=== PATIENT | male | born 1970 | race Caucasian/White ===

== ENCOUNTER 2025-01-18 01:45 | Emergency (ER) | payer BC, SELFPAY ==
[2025-01-18] VITALS (41 sets, daily range): BP systolic 153–173; BP diastolic 71–124; PULSE 62–107; TEMP 36.9; O2SAT 94–99; BMI 46.0
--- NOTE | 2025-01-18 01:52 | ECG_ITS ---
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 Measurements Intervals [place] Rate: 106 P: 42 NC: 128 QRS: 34 QRSD: 82 T: 50 QT: 330 QTc: 392 Interpretive Statements 1120 Sinus tachycardia 4068 Nonspecific Twave abnormality 6220 Possible left atrial enlargement abnormal ECG No previous ECG available for comparison Electronically Signed On 01-18-2025 6:30:18 EDT by FRANCY MANJARREZ M.D.
--- OUTSIDE RECORDS SUMMARY | 2025-01-18 01:58 | XMS_ITS | Clinical Summary ---
Author Organization [facility] Address [address] [place] [address] Care Team Providers Care Roller Mill Tender Name Role Phone Amber Hernandez MD, IBCLC Primary Care Provid er Allergies Active AllergyReactionsCriticalityNoted DateCommentsAmlodipineSwellingMedium 10/02/2021moxicillinHives,Ofdqumw5104/27/2017BisoprololSwelling,Hxijubm1506/15/2021 PzrubofyxastaudhysiLzwlfvqa14/30/8375PflorldibyDvvzlkaq12/07/2018Losartan Tyrzsqvy20/07/3288LgxtqllldqxBgohyiyy65/30/2025 Medications MedicationSigDispense QuantityRefillsLast FilledStart DateEnd DateStatus doxazosin (Cardura) 2 MG tablet Take 2 mg by mouth at udsjbxv16/30/2025Active meloxicam (Mobic) 15 MG tablet Indications: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,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 Take 1 tablet (15 mg) by mouth Daily 90 tablet 501/ctive Active Problems ProblemNoted DateDiagnosed BvtsRytmjecanivjyk21/23/2025Screening for colon opzwbl9610/23/2024 Encounters DateTypeDepartmentCare LzgrCdzmutcudxi52/08/2025Telephone [facility] [address] [place] [address] Amber Hernandez MD, IBCLC 12/26/2024[facility]phone [facility] [address] [place], [place] [address]Shilpa [facility] [place] [address] Leonora Vega, WOO Med Iuhauc1012/11/2024 9:00 AM EDTOffice Visit [facility] [address] [place] [address] [address] [place] [phone] Will Sumner, DO Screening for colon cancer (Primary Dx); Pqsxzvkzfxppkk81/23/9485Wyyrgd44/18/2025Orders Only [facility] [address] [place] [address] [address] [place] [phone] Will Sumner, DO 11/12/20246130Sglmag61/05/2025 9:00 AM EDTOffice Visit [facility] [address] [place] [address] [address] [place] [phone] Will Sumner, DO Screening for colon tbswjm2710/23/20248115Yrhdkb87/04/2025Travelfrom Last 3 Months Family History Medical HistoryRelationNameCommentsDiabetesMotherHeart diseaseMotherHypertension MotherRelationNameStatusCommentsFatherAliveMotherDeceased Social History Tobacco UseTypesPacks/DayYears UsedDateSmoking Tobacco: NeverPassive Smoke Exposure: NeverSmokeless Tobacco: Never Tobacco Cessation:Counseling Given: Yes Alcohol UseStandard Drinks/WeekCommentsYes0 (1 standard drink = 0.6 oz pure alcohol)caffeine intake: 2-3 cups per day teaSex and Gender InformationValueDate RecordedSex Assigned at BirthNot on fileLegal DbvHcss6806/02/2022 11:19 PM EDT Gender IdentityNot on fileSexual OrientationNot on file Last Filed Vital Signs Vital SignReadingTime TakenCommentsBlood Tlgeptvz822/7808 9:08 AM EDT Axkbn3469 7:53 AM OEQDyvsmmvzjbc89.8 ??C (96.4 ??F)08/16/2024 7:53 AM EDTRespiratory Ogck921605/08/2024 4:43 PM ESTOxygen Kvazpbqhln72%08/16/2024 7:53 AM EDTInhaled Oxygen Concentration--Kprgln602 kg (326 lb)10/23/2024 9:08 AM EDT Cddlsv638.8 cm (5' 10 )10/23/2024 9:08 AM EDTBody Mass Index46.78010/23/2024 9:08 AM EDT Plan of Treatment DateTypeDepartmentCare Team (Latest Contact Info)Bzpebvcmoyy48/01/2025 8:00 AM ESTOffice Visit [facility] [address] [place] [phone] Amber Hernandez MD, IBCLC [address] [place] [address] Health MaintenanceDue DateLast DoneCommentsCT Vmllweypkzrm1972FIT-DNA 1970FIT1970FOBT1970 4515Ybnfaruoessaq1970Influenza Vaccine (#1)9456Gijpfiutejy86/11/348825/5Colorectal Cancer Screening 11/29/2034 Procedures Procedure NamePriorityDate/TimeAssociated DiagnosisCommentsHM COLONOSCOPYRoutine 11/29/2024 1:55 PM EDTfrom Last 3 Months Results * Hm Colonoscopy (11/29/2024 1:55 PM EDT)Anatomical RegionLateralityModality Other Narrative Authorizing ProviderResult TypeResult StatusPaul Serg Sumner DOHEALTH MAINTENANCE Final Result from Last 3 Months Insurance Care Teams Team MemberRelationshipSpecialtyStart DateEnd Date Amber Hernandez MD, IBCLC [address] [place] [phone] PCP - Generalmily Medicine08/16/24
--- OUTSIDE RECORDS SUMMARY | 2025-01-18 01:59 | XMS_ITS | Clinical Summary ---
Author Organization [facility] tem Address [id number] [address] [place] [address] Care Team Providers Care File Conversion Operator Name Role Phone Amber Hernandez MD Primary Care Provider [phone] Allergies Active AllergyReactionsCriticalityNoted DateCommentsAmlodipineSwellingMedium 10/02/20214909AmbkoosgxcxGrocp96/07/2589SkffhczsefDakdpfhi82/ HepthytztcngoaudmafPwusjyjo04/30/0927XwqpzhmiljJizqvkgc31/07/2018Losartan Vgoyqeyx45/07/2099OrzxlzbmiqjGrnlyoay30/30/2025 Medications MedicationSigDispense QuantityRefillsLast FilledStart DateEnd DateStatus doxazosin (CARDURA) 2 mg tablet Indications:Essential hypertension, benignTake 1 tablet (2 mg total) by mouth nightly. 30 tablet 1105Active Active Problems ProblemNoted DateDiagnosed DateEssential hypertension, vtghik7304/28/2017 Immunizations No known immunizations Family History Medical HistoryRelationNameCommentsNo Known ProblemsFatherCoronary artery diseaseMotherDiabetesMotherHypertensionMotherLung cancerPaternal Grandfather RelationNameStatusCommentsFatherAliveMotherAlivePaternal Grandfather Social History Tobacco UseTypesPacks/DayYears UsedDateSmoking Tobacco: NeverSmokeless Tobacco: Never Tobacco Cessation:Counseling Given: Not Answered Alcohol UseStandard Drinks/WeekCommentsYes0 (1 standard drink = 0.6 oz pure alcohol)socialAUDIT-CAnswerDate RecordedFrequency of Alcohol Consumption2-4 times a month10/02/2018Average Number of Drinks5 or 607Frequency of Binge LfaslfxfFvvanrw77/15/2019PHQ-2AnswerDate RecordedTotal Hkrjt534 ChildcareAnswerDate QpgnvcrtGikvqbedgRldocwk13/31/2019EmploymentAnswerDate XggfaspbLkpiryxpvaEusqenh17/31/2019Hunger ScreeningAnswerDate RecordedWithin the past 12 months we worried whether our food would run out before we got money to buy more.Never True07/18/2024Within the past 12 months the food we bought just didn't last and we didn't have money to get more.Never True07/18/2024Purpose - LifeAnswerDate RecordedPurpose and direction in fcvnGripkil71/11/2021ex and Gender InformationValueDate RecordedSex Assigned at BirthNot on fileLegal Sex Male10/24/2014 11:38 AM EDTGender IdentityNot on fileSexual OrientationNot on file Last Filed Vital Signs Vital SignReadingTime TakenCommentsBlood Xqvxqpjn922/98007/18/2024 11:41 AM EDT Iuwhz109507/18/2024 11:41 AM RKTVdphywqgdte28.6 ??C (97.9 ??F)02/01/2024 3:26 PM ESTRespiratory Iljn476807/18/2024 11:41 AM EDTOxygen Jsffwzfubu59%07/18/2024 11:41 AM EDTInhaled Oxygen Concentration--Qfbsaw330.4 kg (314 lb)07/18/2024 11:41 AM GIMBbmxnq624.8 cm (5' 10 )02/01/2024 3:26 PM ESTBody Mass Index45.0502/01/2024 3:26 PM EST Plan of Treatment Health MaintenanceDue DateLast DoneCommentsAdult BMI Follow Up Plan1990 DTaP,Tdap and Td Vaccines (1 - Tdap)1991Zoster (Shingles) Vaccine (1 of 2) 2022Influenza Kxqlkik8311/19/2024dult BMI Cwdnemvyn545 Depression Bjbfrkpji05Tobacco Tejphzwce40 Medical Devices Not on file Insurance MemberSubscriberPlan / Payer (Effective 2022-Present)Name:Seymour Thomas Relation to Subscriber:SelfName:Seymour Thomas Payer ID:Not on file Group ID:Not on file Type:Not on file Address: [address] [place], [place] Care Teams Team MemberRelationshipSpecialtyStart DateEnd Amber Gregorio MD [address] [place] [address] PCP - GeneralObstetrics & Gynecology08/16/24
--- NOTE | 2025-01-18 02:15 | PC.NURSE ---
feel heart fluttering or beating out of chest
--- NOTE | 2025-01-18 02:21 | ED.ARRPALP1 ---
HPI - Arrhythmia/Palpitations General Chief Complaint: Arrhythmia/Palpitations Stated Complaint: Fast Heart Time Seen by Provider: 01/18/25 02:11 Source: patient Mode of arrival: walk-in Limitations: no limitations History of Present Illness HPI narrative: clammy with flutter in his chest and then need to urinate several times. No chest pain, nausea or dyspnea. symptoms started about an hour ago and have resolved. No abdominal pain , fever or chills Related Data Home Medications ?Medication ?Instructions ?Recorded ?Confirmed doxazosin 2 mg tablet 2 mg PO DAILY 01/18/25 01/18/25 meloxicam 15 mg tablet 15 mg PO DAILY 01/18/25 01/18/25 omega3 1,050 mg-dha 300mg-epa cap PO 01/18/25 675mg-dpa 43fd-yvnh-J6-K2 50 mcg capsule (Siler-3 2100 Vit K2-D3) vitamin B complex and C 5 ml PO DAILY 01/18/25 01/18/25 no.10-folic acid 900 mcg/5 mL oral liquid Allergies Allergy/AdvReac Type Severity Reaction Status Date / Time amlodipine Allergy Severe Anaphylaxis Verified 01/18/25 02:30 bisoprolol Allergy Severe Anaphylaxis Verified 01/18/25 02:30 hydrochlorothiazide Allergy Severe Anaphylaxis Verified 01/18/25 02:30 lisinopril Allergy Severe Anaphylaxis Verified 01/18/25 02:30 losartan Allergy Severe Anaphylaxis Verified 01/18/25 02:30 triamterene Allergy Severe Anaphylaxis Verified 01/18/25 02:30 amoxicillin Allergy Intermediate Hives Verified 01/18/25 02:30 Review of Systems ROS Status of ROS 10 or more systems reviewed and unremarkable except as noted in history and below [facility] Medical History (Updated 01/18/25 @ 05:53 by Óscar Bravo MD) Hypertension ?I10 - Essential (primary) hypertension (ICD-10) Surgical History (Updated 01/18/25 @ 02:10 by Dameon Haddad) H/O lateral meniscus repair of right knee ?Z98.890 - Other specified postprocedural states (ICD-10) H/O lateral meniscus repair of left knee ?Z98.890 - Other specified postprocedural states (ICD-10) H/O colonoscopy ?Z98.890 - Other specified postprocedural states (ICD-10) Social History Little interest or pleasure in doing things: not at all Feeling down, depressed, or hopeless: not at all Exam Constitutional Vital Signs, click to edit/add: Last Vital Signs Temp 98.4 F 01/18/25 01:50 Pulse 107 H 01/18/25 01:50 Resp 20 01/18/25 01:50 BP 160/110 H 01/18/25 03:11 Pulse Ox 96 01/18/25 01:50 O2 Del Method Room Air 01/18/25 01:50 Common normals: no apparent distress, average body habitus, oriented x3, no limitations, healthy appearing, alert and well nourished HENVA Common normals: normocephalic and head/scalp atraumatic Eye Common normals: PERRL and EOMs intact bilaterally Respiratory Common normals: normal respiratory effort, no retractions, no use of accessory muscles and clear to auscultation bilaterally Cardio Common normals: regular rate, regular rhythm, S1 normal heart sound and S2 normal heart sound GI Common normals: Normal to inspection, nondistended, normoactive bowel sounds present, soft to palpation and non-tender Extremity Common normals: normal to inspection and full ROM Neuro Common normals: oriented x3, CN's II-XII intact bilaterally, moves all extremities and no focal motor deficits Psych Appearance: grossly normal Course Vital Signs Vital signs: Vital Signs Temperature 98.4 F 01/18/25 01:50 Pulse Rate 107 H 01/18/25 01:50 Respiratory Rate 20 01/18/25 01:50 Blood Pressure 170/120 H 01/18/25 01:50 Pulse Oximetry 96 01/18/25 01:50 Oxygen Delivery Method Room Air 01/18/25 01:50 Temperature 98.4 F 01/18/25 01:50 Pulse Rate 107 H 01/18/25 01:50 Respiratory Rate 20 01/18/25 01:50 Blood Pressure 160/110 H 01/18/25 03:11 Pulse Oximetry 96 01/18/25 01:50 Oxygen Delivery Method Room Air 01/18/25 01:50 MDM - Arrhythmia/Palpitations MDM Narrative Medical decision making narrative: patient has past history of HTN. Presents from home with episode of fluttering in his chest and diaphoresis. by the time he arrived here he was asymptomatic. No past history of CAD. EKG with sinus tach. cxray without acute findings. His troponin increased from 27 to 85. Discussed with hospitalist at [facility] and patient accepted for admission. Patient is currently asymptomatic Lab Data Labs: Lab Results 01/18/25 01/18/25 01/18/25 Range/Units 02:00 03:23 04:40 WBC 8.6 (4.0-11.0) 10^3/uL RBC 5.31 (4.70-6.10) 10^6/uL Hgb 16.4 (14.0-18.0) g/dL Hct 46.7 (42.0-54.0) % MCV 87.9 (80.0-94.0) fL MCH 30.9 (25.9-34.0) pg MCHC 35.1 (29.9-35.2) g/dL RDW 12.5 (11.0-15.0) % Plt Count 205 (150-450) 10^3/uL MPV 11.0 (9.5-13.5) fL Neut % (Auto) 65.7 (43.0-75.0) % Lymph % (Auto) 22.5 (20.5-60.0) % [place] % (Auto) 7.3 (1.7-12.0) % Eos % (Auto) 2.3 (0.9-7.0) % Baso % (Auto) 0.7 (0.2-2.0) % Neut # (Auto) 5.6 (1.4-6.5) 10^3/uL Lymph # (Auto) 1.9 (1.2-3.8) 10^3/uL [place] # (Auto) 0.6 (0.3-0.8) 10^3/uL Eos # (Auto) 0.2 (0.0-0.7) 10^3/uL Baso # (Auto) 0.1 (0.0-0.1) 10^3/uL Abs Immat Gran (auto) 0.13 H (0.00-0.03) 10^3/uL Imm/Tot Granulo (auto) 1.5 H (0.0-0.5) % D-Dimer 0.31 (<=0.59) mg/L FEU Sodium 141 (136-145) mmol/L Potassium 3.7 (3.5-5.1) mmol/L Chloride 103 (98-107) mmol/L Carbon Dioxide 28.3 (21.0-32.0) mmol/L Anion Gap 13.4 BUN 23.0 H (7.0-18.0) mg/dL Creatinine 1.07 (0.70-1.30) mg/dL Est GFR ( Amer) >60 (>=60 mL/min/1.73m^2) Est GFR (Non-Af Amer) >60 (>=60 mL/min/1.73m^2) BUN/Creatinine Ratio 21.5 Glucose 142 H (74-106) mg/dL Calcium 10.3 H (8.5-10.1) mg/dL Troponin I High Sens 27.6 85.0 H* (4.0-76.1) pg/mL Urine Color Lt. yellow (YELLOW) Urine Clarity Clear (CLEAR) Urine pH 6.0 (5.0-9.0) Ur Specific [place] 1.015 (1.005-1.025) Urine Protein Negative (NEG/TRACE) mg/dL Urine Glucose (UA) Negative (NEGATIVE) mg/dL Urine Ketones Negative (NEGATIVE) mg/dL Urine Occult Blood Trace-i (NEGATIVE) Urine Nitrite Negative (NEGATIVE) Urine Bilirubin Negative (NEGATIVE) Urine Urobilinogen 0.2 (0.2-1.0) EU/dL Ur Leukocyte Esterase Negative (NEGATIVE) Urine RBC None seen (0-2) #/HPF Urine WBC 0-2 A (NONE SEEN) #/HPF Ur Squamous Epith Cells None seen (NONE/RARE) #/LPF Urine Crystals None seen (None Seen) #/HPF Urine Bacteria Trace A (NONE SEEN) #/HPF Urine Casts None seen (NONE SEEN) #/LPF Urine Mucus None seen (NONE SEEN) Ur Culture Indicated? No Discharge Plan Discharge Chief Complaint: Arrhythmia/Palpitations Clinical Impression: Chest pain, Elevated troponin Patient Disposition: [facility]
--- NOTE | 2025-01-18 02:23 | XR_ITS ---
The [place] [id number] Patient Name: MARY ALVARADO MRN: [id number] date: 1970 Sex: M Assigned Patient Location: ED.MAIN Current Patient Location: ED.MAIN Accession/Order Number: [id number] Exam Date: 01/18/2025 02:28 Report Date: 01/18/2025 08:49 At the request of: REHANA WISEMAN MD Procedure: XR chest 1V PORTABLE AP ERECT CHEST 0213 hours CLINICAL HISTORY: palpitations COMPARISON: None Assessment is slightly limited by large body habitus and shallow inspiration. The heart is top normal in size. There is no vascular congestion. The lungs, as visualized, are clear. There is no effusion or pneumothorax. The osseous structures are intact. XR/XR chest 1V IMPRESSION: NO ACUTE FINDINGS Impression dictated by: Jodie Cisneros M.D. 01/18/2025 8:49 AM Dictation Location: [place] [address] Electronically authenticated by: [id number] Y Date: 01/18/2025 08:49
[2025-01-18 02:36] LABS: Hematocrit 46.7 % (42.0-54.0); Hemoglobin 16.4 g/dL (14.0-18.0); Immature Granulocytes Abs Auto 0.13 10^3/uL (0.00-0.03); Immature Granulocytes Pct Auto 1.5 % (0.0-0.5); Lymphocytes Absolute Auto 1.9 10^3/uL (1.2-3.8); Mean Corpuscular HGB Conc 35.1 g/dL (29.9-35.2); Mean Corpuscular Hemoglobin 30.9 pg (25.9-34.0); Mean Corpuscular Volume 87.9 fL (80.0-94.0); Platelet Count 205 10^3/uL (150-450); Red Blood Count 5.31 10^6/uL (4.70-6.10); White Blood Count 8.6 10^3/uL (4.0-11.0)
[2025-01-18 02:49] LABS: Anion Gap 13.4; Blood Urea Nitrogen 23.0 mg/dL (7.0-18.0); Calcium 10.3 mg/dL (8.5-10.1); Carbon Dioxide 28.3 mmol/L (21.0-32.0); Chloride 103 mmol/L (98-107); Estimated GFR (African America >60 (>=60 mL/min/1.73m^2); Estimated GFR (Non-African Ame >60 (>=60 mL/min/1.73m^2); Glucose 142 mg/dL (74-106); Potassium 3.7 mmol/L (3.5-5.1); Sodium 141 mmol/L (136-145)
[2025-01-18 03:37] LABS: Glucose Urine UA NEGATIVE (NEGATIVE)
[2025-01-18 03:47] LABS: Cast Seen? NONE SEEN #/LPF (NONE SEEN); Crystals Seen? None Seen #/HPF (None Seen); Urine Culture Indicated NO
== END 2025-01-18 09:10 | disposition short-term general hospital (02) ==
PROVIDERS: Emergency Provider Internal Medicine; PCP Student in an Organized Health Care Education/Training Program
DX: R07.9 Chest pain, unspecified (principal); R79.89 Other specified abnormal findings of blood chemistry; I10 Essential (primary) hypertension
CPT/HCPCS: 36415; 71045; 80048; 81001; 84484; 85025; 85378; 93005; 99285